=== PATIENT | male | born 1960 | race Caucasian/White ===

== ENCOUNTER 2017-02-11 14:39 | Emergency (ER) | payer OTHER | END 2017-02-11 15:35 | disposition left against medical advice (07) | LOC: UCEAST 14:39 | DX: S91.339A Puncture wound without foreign body, unspecified foot, initial encounter (principal); W26.8XXA Contact with other sharp object(s), not elsewhere classified, initial encounter; Y93.9 Activity, unspecified; Y92.9 Unspecified place or not applicable; Z53.21 Procedure and treatment not carried out due to patient leaving prior to being seen by health care provider ==

== ENCOUNTER 2019-08-15 16:00 | Emergency (ER) | payer OTHER ==
[2019-08-15 16:22] VITALS: BP 119/79
--- NOTE | 2019-08-15 16:33 | UC ---
Hand/Wrist HPI - HPI Summary HPI Summary: Patient is a 59yo male presenting with left ring finger pain after it got crushed by the window while removing the air conditioner today at 1430. Denies pain in other fingers. Notes pain only with movement or palpation of finger. No pain at rest. Notes swelling and bruising. Notes decreased ROM of finger due to swelling. Denies hand and wrist pain. Denies numbness and tingling. Patient states he wants to make sure nothing is broke. - History Of Current Complaint Chief Complaint: UCUpperExtremity Stated Complaint: FINGER INJURY Time Seen by Provider: 08/15/19 16:29 Hx Obtained From: Patient Onset/Duration: Sudden Onset Severity Currently: None Pain Intensity: 0 - Allergies/Home Medications Allergies/Adverse Reactions: Allergies Allergy/AdvReac Type Severity Reaction Status Date / Time Adhesive Tape Allergy Rash And Verified 01/17/16 11:57 Itching Home Medications: Home Medications Losartan/Hydrochlorothiazide [Losartan Potassium/Hydroc 100-12.5 mg] 1 tab PO DAILY 08/15/19 [History Confirmed 08/15/19] Metoprolol Succinate XL TAB* [Toprol XL TAB*] 25 mg PO DAILY 08/15/19 [History Confirmed 08/15/19] PMH/Surg Hx/FS Hx/Imm Hx Cardiovascular History: Hypertension - Surgical History Surgical History: Yes Surgery Procedure, Year, and Place: YOUNG CHILD ING. HERNIA REPAIR. 1970 APPENDECTOMY [facility]. 1982 &1995 RIGHT HAND INJURY. 2005 RIGHT KNEE [facility]. R Carpal tunnel - Family History Known Family History: Positive: Non-Contributory - Social History Alcohol Use: None Substance Use Type: None Smoking Status (MU): Never Smoked Tobacco Have You Smoked in the Last Year: No Household Exposure Type: Cigarettes - Immunization History Most Recent Tetanus Shot: 2018 Review of Systems All Other Systems Reviewed And Are Negative: No Constitutional: Positive: Negative Skin: Positive: Bruising Respiratory: Positive: Negative Cardiovascular: Positive: Negative Motor: Positive: Negative Neurovascular: Positive: Negative. Negative: Decreased Sensation Musculoskeletal: Positive: Arthralgia, Decreased ROM, Edema. Negative: Myalgia Neurological: Negative: Weakness, Paresthesia, Numbness Physical Exam Triage Information Reviewed: Yes Appearance: Well-Appearing, No Pain Distress, Well-Nourished Vital Signs: Initial Vital Signs Temp 98.6 F 08/15/19 16:18 Pulse 85 08/15/19 16:18 Resp 18 08/15/19 16:18 BP 119/79 08/15/19 16:18 Pulse Ox 98 08/15/19 16:18 Vital Signs Reviewed: Yes Eyes: Positive: Conjunctiva Clear ENT: Positive: Hearing grossly normal Neck: Positive: Supple Respiratory: Positive: No respiratory distress Cardiovascular: Positive: Pulses Normal, Brisk Capillary Refill Musculoskeletal: Positive: Strength Intact, ROM Limited @ - left ring finger flexion due to pain and edema, Edema @ - left ring finger, Other: - tenderness to palpation of DIP and PIP of left fourth finger Neurological: Positive: Alert Psychological: Positive: Age Appropriate Behavior Skin: Positive: Other - ecchymosis noted over PIP joint of left ring finger Diagnostics - Radiology finger xray Radiology Interpretation Completed By: Radiologist Summary of Radiographic Findings: IMPRESSION: MILD SOFT TISSUE SWELLING ABOUT THE FOURTH PIP WITH NO EVIDENCE FOR FRACTURE. Hand/Wrist Course/Dx - Course Course Of Treatment: Discussed negative xrays with patient. He refused ibuprofen and splinting here. I instructed him to use ice, rest, and otc analgesics as directed for pain relief. Directed him to follow up with ortho if pain persists. Instructed him to return or go to the ED if symptoms worse. Patient voiced understanding and agreed to the treatment plan. - Differential Dx/Diagnosis Provider Diagnosis: Contusion of left ring finger Discharge ED - Sign-Out/Discharge Documenting (check all that apply): Patient Departure All imaging exams completed and their final reports reviewed: Yes - Discharge Plan Condition: Stable Disposition: HOME Referrals: Saw Leonardo MD [Medical Doctor] - If Needed Additional Instructions: As discussed, the xrays of your finger did not show any fractures. Use rest, ice, elevation, and compression with an ulices wrap to help relieve pain. You may also use over the counter pain medications as directed for relief of pain. If pain does not resolve, follow up with orthopedics as listed below. Return or go to the emergency room if pain worsens, the finger becomes cold and numb, or you are not able to move it. - Billing Disposition and Condition Condition: STABLE Disposition: Home - Attestation Statements Provider Attestation: Per institutional requirements, I have reviewed the chart, however, I was not consulted specifically or made aware of this patient by the midlevel provider. I did not personally evaluate, interact with , or disposition this patient.
== END 2019-08-15 17:16 | disposition home or self-care (01) ==
LOC: UCEAST 16:00
DX: S60.042A Contusion of left ring finger without damage to nail, initial encounter (principal); I10 Essential (primary) hypertension; Z91.09 Other allergy status, other than to drugs and biological substances; W23.0XXA Caught, crushed, jammed, or pinched between moving objects, initial encounter; Y92.9 Unspecified place or not applicable; Z79.899 Other long term (current) drug therapy
CPT/HCPCS: 73140; 99211; G0463